=== PATIENT | female | born 1995 ===

== ENCOUNTER → 2018-05-05 | Outpatient (CLI) | payer SELFPAY ==
[~2018-05-05] VITALS: Ht 151.1 cm; Wt 71.9 kg
== END | disposition home or self-care (01) ==
LOC: PREOP 05:35
PROVIDERS: ATTEND Obstetrics & Gynecology
DX: Z01.818 Encounter for other preprocedural examination (principal)

== ENCOUNTER 2018-05-12 05:56 | Inpatient (IN) | payer OTHER ==
[~2018-05-12] VITALS: Ht 152.4 cm; Wt 73.0 kg
[~2018-05-12 05:56] MED LIST: CITRIC ACID/SOB CIT (BICITRA) 30 ML UDC ONE; FAMOTIDINE 20MG/2ML IV (PEPCID) ONE; LACTATED RINGERS 1,000 ML IV ONE; METOCLOPRAMIDE INJ 10 MG/2 ML (REGLAN) ONE; WATER (STERILE) FOR INJECTION 10 ML ONE; ceFAZolin INJECTION 1,000 MG ONE
--- NOTE | 2018-05-12 06:06 | NUR ---
ANA JOHNSON presented to unit via ambulatory from ED, accompanied by family, for c section. ANA JOHNSON weighed, gowned, voided, and to bed. EFHM and TOCO applied, VS taken. ANA JOHNSON oriented to bed controls, call light, TV, heat, and A/C controls.
[2018-05-12] MEDS ORDERED: LACTATED RINGERS 1,000 ML IV PRN (06:09)
[2018-05-12] MEDS ORDERED: FAMOTIDINE 20MG/2ML IV (PEPCID) IV ONE (06:15)
[2018-05-12] MEDS ORDERED: CITRIC ACID/SOB CIT (BICITRA) 30 ML UDC PO ONE (06:15)
[2018-05-12] MEDS ORDERED: ceFAZolin INJECTION 1,000 MG in WATER (STERILE) FOR INJECTION 10 ML IV ONE (06:15)
[2018-05-12] MEDS ORDERED: CATHETER FLUSH 10 ML SYR IV PRN (06:15)
[2018-05-12] MEDS ORDERED: METOCLOPRAMIDE INJ 10 MG/2 ML (REGLAN) IV ONE (06:15)
[2018-05-12 06:25] VITALS: BP 107/66
[2018-05-12 06:42] LABS: BASOPHILS % (AUTO) 0 % (0-10); EOSINOPHILS # (AUTO) 0.8 10^3/uL (0.0-0.3); EOSINOPHILS % (AUTO) 11 % (0-10); HEMATOCRIT 35 % (35-52); HEMOGLOBIN 11.9 G/DL (11.5-16.0); LYMPHOCYTES # (AUTO) 2.2 X 10^3 (1.0-4.0); LYMPHOCYTES % (AUTO) 30 % (12-44); MEAN CORPUSCULAR HEMOGLOBIN 32 PG (25-34); MEAN CORPUSCULAR HGB CONC 34 G/DL (32-36); MEAN CORPUSCULAR VOLUME 96 FL (80-99); MEAN PLATELET VOLUME 10.7 FL (7.4-10.4); MONOCYTES # (AUTO) 0.3 X 10^3 (0.0-1.0); MONOCYTES % (AUTO) 5 % (0-12); NEUTROPHILS # (AUTO) 3.9 X 10^3 (1.8-7.8); NEUTROPHILS % (AUTO) 54 % (42-75); PLATELET COUNT 248 10^3/uL (130-400); RED CELL DISTRIBUTION WIDTH 12.5 % (10.0-14.5); WHITE BLOOD COUNT 7.2 10^3/uL (4.3-11.0)
--- NOTE | 2018-05-12 06:49 | NUR ---
Anes student at bedside at this time.
[2018-05-12] MEDS ORDERED: BUPIVACAINE SPINAL 0.75% (SENSORCAINE) 2 ML AMP ONE (07:02)
[2018-05-12] MEDS ORDERED: ONDANSETRON 4 MG/2 ML (SDV) Z0FRAN ONE (07:02)
[2018-05-12] MEDS ORDERED: DEXAMETHASONE 10 MG/ML (DECADRON) 1 ML VIAL ONE (07:02)
[2018-05-12] MEDS ORDERED: fentaNYL INJECTION 100 MCG/2 ML AMP ONE (07:02)
[2018-05-12] MEDS ORDERED: OXYTOCIN/NORMAL SALINE 1,000 ML IV ONE (07:02)
[2018-05-12] MEDS ORDERED: LIDOCAINE PF 2% 5 ML (XYLOCAINE) VIAL ONE (07:17)
[2018-05-12] MEDS ORDERED: ROPIVACAINE 5MG/ML 30ML VIAL ONE (07:17)
--- NOTE | 2018-05-12 07:20 | History & Physical-OB ---
OB - Chief Complaint & HPI Date/Time Date of Admission: Date of Admission: May 12, 2018 at 05:56 Date seen by a Provider: May 12, 2018 Time Seen by a Provider: 07:10 Chief Complaint/History OB-Reason for Admission/Chief: Onset of Labor Hx : 3 Hx Para: 1 Expected Date of Delivery: May 26, 2018 Gestational Age in Weeks: 38 Gestational Age in Days: 0 Indication for : desires repeat Admission Nurse Assessment Rev: Yes History of Labs O pos Antibody neg RI RPR NR HBsAg NR HIV NR GC neg GBS unknown Allergies and Home Medications Allergies Coded Allergies: No Known Drug Allergies (Unverified , 05/12/18) Home Medications No Active Prescriptions or Reported Meds Patient Home Medication List Home Medication List Reviewed: Yes OB - History Hx of Present Ultrasounds: Normal mid trimester US Obstetrical Complications: Other (Cholestasis of ) Medical Complications: None Delivery History Adverse Rxn to Tranfusion: No (N/A) Patient Past Medical History n/a Social History/Family History HIV/AIDS: No Sexually Transmitted Disease: No Alcohol Use: Denies Use Recreational Drug Use: No Immunizations Date of Influenza Vaccine: Nov 29, 2017 OB - Admission Exam Physical Exam Vitals: Vital Signs 05/12/18 06:25 Temp 98.6 Pulse 80 Resp 16 B/P (MAP) 107/66 (80) Pulse Ox 99 O2 Delivery Room Air HEENT: NCAT Heart: Rhythm Normal Lungs: Clear Abdomen: Gravid Reflexes: Normal Heart Rate: 130's Accelerations: Accelerations Present Decelerations: No Decelerations Short Term Variability: Present Assisted Variability: Average (6-25) Contractions on Admission: 6-10 Minutes Apart Intensity: Mild Labs Laboratory Tests Test 05/12/18 06:23 Range/Units White Blood Count 7.2 4.3-11.0 10^3/uL Red Blood Count 3.67 L 4.35-5.85 10^6/uL Hemoglobin 11.9 11.5-16.0 G/DL Hematocrit 35 35-52 % Mean Corpuscular Volume 96 80-99 FL Mean Corpuscular Hemoglobin 32 25-34 PG Mean Corpuscular Hemoglobin Concent 34 32-36 G/DL Red Cell Distribution Width 12.5 10.0-14.5 % Platelet Count 248 130-400 10^3/uL Mean Platelet Volume 10.7 H 7.4-10.4 FL Neutrophils (%) (Auto) 54 42-75 % Lymphocytes (%) (Auto) 30 12-44 % Monocytes (%) (Auto) 5 0-12 % Eosinophils (%) (Auto) 11 H 0-10 % Basophils (%) (Auto) 0 0-10 % Neutrophils # (Auto) 3.9 1.8-7.8 X 10^3 Lymphocytes # (Auto) 2.2 1.0-4.0 X 10^3 Monocytes # (Auto) 0.3 0.0-1.0 X 10^3 Eosinophils # (Auto) 0.8 H 0.0-0.3 10^3/uL Basophils # (Auto) 0.0 0.0-0.1 10^3/uL OB - Assessment/Plan/Diagnosis Assessment Assessment: section Admission Dx Repeat 37 weeks Intrahepatic cholestasis of Previous Admission Status: Inpatient Order (span 2 midnights) Reason for Inpatient Admission: Repeat Plan Plan: Section CYN ORLANDO DO May 12, 2018 07:20
[2018-05-12] MEDS ORDERED: OXYTOCIN/NORMAL SALINE 500 ML IV SCH (07:25)
[2018-05-12] MEDS ORDERED: ACHD5005 PO (07:29)
[2018-05-12] MEDS ORDERED: IBUP-1773 PO (07:29)
[2018-05-12] MEDS ORDERED: DOCU100C37 PO (07:29)
[2018-05-12] MEDS ORDERED: ONDANSETRON 4 MG/2 ML (SDV) Z0FRAN IVP PRN (07:30)
[2018-05-12] MEDS ORDERED: HYDROmorphone 2 MG/ML VIAL (DILAUDID) IV PRN (07:30)
[2018-05-12] MEDS ORDERED: TETANUS,DIPTH,PERTUSS P/F (BOOSTRIX) 0.5 ML VIAL IM SCH (07:30)
[2018-05-12] MEDS ORDERED: MEASLES,MUMPS,RUBELLA 1 EA INJ SC SCH (07:30)
--- NOTE | 2018-05-12 07:31 | Discharge Inst-Women's Service ---
Discharge Inst-Women's Serv Depart Medication/Instructions New, Converted or Re-Newed RX: RX on Chart Final Diagnosis POD 2 RLTCS Consults/Follow Up Additional Follow Up: Yes Orders/Referrals Dr. Garcia in 7-10, Dr. Casey in 6 weeks Activity Activity: Activity as Tolerated Driving Instructions: No Driving for 1 Week NO SMOKING: NO SMOKING Nothing Inside Vagina: No Douching, No [place], No Tampons Diet Discharge Diet: No Restrictions Symptoms to Report to : Bleeding Excessive, Pain Increased, Fever Over 101 Degrees F, Vaginal Bleeding Increase, Questions/Concerns For Any Problems or Questions: Contact Your Physician Skin/Wound Care Infection Signs and Symptoms: Increased Redness, Foul Odor of Wound, Increased Drainage, Skin Itchy or Has a Rash, Increased Swelling, Temperature Above 101 F Operative Area Clean and Dry: Keep Incision Clean/Dry Stitches/Danielito/Dermabond: Dermabond, Care of Stitches Bathing Instructions: CYN Bullock DO May 12, 2018 07:31
[2018-05-12] MEDS ORDERED: NALOXONE 0.4 MG/ML 1 ML (NARCAN) VIAL IV PRN (08:45)
[2018-05-12] MEDS ORDERED: diphenhydrAMINE 50 MG/ML INJ (BENADRYL) IV PRN (08:45)
[2018-05-12] MEDS ORDERED: ONDANSETRON 4 MG/2 ML (SDV) Z0FRAN IV PRN (08:45)
--- NOTE | 2018-05-12 09:35 | NUR ---
transferred to room 308 from recovery at 0925. IV switch over to pump, pitocin infusing at 125ml/hr as ordered. fresh ice water placed at bedside. denies pain. SCD's to lower calfs. no s/s of distress noted.
[2018-05-12 10:20] VITALS: BP 106/67
--- NOTE | 2018-05-12 10:20 | NUR ---
vitals taken. family at bedside. reports mild pain see vitals intervention. toradol given as ordered see eMAR. reviewed room service, [place] menu given. light to moderate flow. ffu/0 denies further need at this time.
[2018-05-12] MEDS: KETOROLAC 30 MG/ML VIAL IVP SCH (10:28)
--- NOTE | 2018-05-12 11:10 | NUR ---
Resting with eyes closed.
[2018-05-12] MEDS: HYDROcodone/APAP 5 MG/325 MG (LORTAB) TAB PO PRN ×2 (11:49→21:09)
--- NOTE | 2018-05-12 13:35 | OPERATIVE REPORT ---
DATE OF SERVICE: PREOPERATIVE DIAGNOSES: 1. A 22-year-old G3, P2 at 38 weeks and 1 day gestation. 2. Previous section x 2. 3. Cholestasis of . POSTOPERATIVE DIAGNOSES: 1. A 22-year-old G3, P2 at 38 weeks and 1 day gestation. 2. Previous section x 2. 3. Cholestasis of . PROCEDURE: Repeat low transverse section. SURGEON: Gregorio Orlando DO. ANESTHESIA: Spinal. BDR: Dr. Lex Casey. ESTIMATED BLOOD LOSS: 400 mL. URINE OUTPUT: 200 mL clear at the end of the procedure. FLUIDS: 1000 mL lactated Ringer solution. FINDINGS: A live female infant weighing 6 pounds and 11 ounces, Apgars of 8 and 9. Grossly normal appearing uterus, bilateral fallopian tubes and ovaries. INDICATIONS FOR PROCEDURE: This 22-year-old female is a consultation to me from Dr. Casey at the [facility] for a repeat . She had a two prior low transverse cesareans that had been performed in [facility]. She was diagnosed with cholestasis of around 32 weeks and started on cholestyramine with good relief in symptoms. I recommended continuous surveillance weekly for the remainder of the . She progressed all the way to 38 weeks. Recommendation was to deliver prior to 39 weeks due to the cholestasis of and increased risk of IUFD. Risks of the procedure were discussed with the patient in detail preoperatively including risk of bleeding, infection, damage to surrounding structures including, but not limited to bowel, bladder, ureter, kidneys, possible postoperative complications, possible recovery timeframes, risk to baby, risk to mother, risk of anesthesia and even . After everything was discussed with the patient in detail, consent was obtained in the preoperative area and the patient was taken to the operating room. OPERATIVE REPORT IN DETAIL: Once in the operating room and spinal analgesia was found to be adequate, she was placed in a supine position with the leftward tilt and prepped and draped in a normal sterile fashion. A timeout was performed and anesthesia was tested and found to be adequate. I then made a low transverse incision through the previously existing scar using a knife and carried down to the underlying fascia using a Bovie cautery. Fascia was extended laterally using Bovie cautery. The fascial incision extended laterally using Bovie cautery. Superior aspect of the fascial incision was then grasped with April clamps, tented up and dissected off the underlying rectus muscle. The inferior aspect of the fascial incision was then grasped with April clamps, tented up and dissected off the underlying rectus muscles. The rectus muscle was dissected down the midline using Stewart scissors, which exposed the peritoneum, which I entered bluntly and extended using blunt traction. An Peewee ring retractor was placed in the peritoneal incision, which offered excellent lateral side wall retraction. I then identified the lower uterine segment, which was found to be very thinned out. A low transverse incision was made with a knife through the vesicouterine peritoneum, which was bluntly dissected off the lower uterine segment. Myotomy was continued with blunt traction and membranes were encountered almost immediately. The uterine incision was extended laterally and superiorly using bandage scissors. Amniotomy was performed during the process of doing this and meconium stained fluid was noted. The infant was found in a vertex presentation. With gentle fundal pressure, the infant's head was elevated up to the incision where the nares and oropharynx were bulb suctioned. Nuchal cord was reduced x 1. Anterior and posterior shoulders were delivered. was then brought to the operative field where the cord was doubly clamped and cut and infant was taken off of the field by Dr. Casey for further attendance. Cord blood was collected. Three-vessel cord with intact placenta was delivered spontaneously thereafter. IV Pitocin was initiated to facilitate uterine contraction. Uterine fundus became firmer with bimanual massage. The uterus was then exteriorized and cleared of endometrial clots and debris. I then proceeded with closing the uterine incision using 0 Vicryl suture in a running locked fashion. Second layer of imbricating 0 Monocryl was placed. Excellent hemostasis was noted after doing this. I then placed the uterus back into the pelvis and copiously irrigated the pelvis using normal saline. Once again, there was no active bleeding noted from any of my dissection planes. I placed Interceed antiadhesive over my low transverse incision proceeded with closing the peritoneum using 3-0 Vicryl suture in a running fashion. The rectus muscle was reapproximated using 3-0 Vicryl suture in an interrupted fashion. The fascia was reapproximated using 0 Vicryl suture in a running fashion. The subcutaneous tissue was reapproximated using a 3-0 plain in an interrupted subcutaneous stitch and the skin was reapproximated using 4-0 Monocryl running subcuticular. Dermabond was applied to the incision and a sterile dressing with the adhesive white tape. The patient tolerated the procedure well and was sent to the recovery area in stable condition. Two grams of Ancef were given preoperatively for infection prophylaxis. Job ID: [id number] DocumentID: [id number] Dictated Date: 05/12/2018 10:28:38 Pilot Teacher Date: 05/12/2018 13:34:30 Dictated By: GREGORIO ORLANDO DO
[2018-05-12] MEDS ORDERED: CATHETER FLUSH 10 ML SYR IV SCH (14:00)
[2018-05-12 15:25] VITALS: BP 98/57
--- NOTE | 2018-05-12 17:10 | NUR ---
Up to BR and voided 900ml. Ambulated slowly, pt states "mild" pain. Albanian speaking with minimal Yi. Grandfather speaks Yi well.
[2018-05-12 21:09] VITALS: BP 103/62
[2018-05-12] MEDS: DOCUSATE SODIUM 100 MG (COLACE) CAP PO SCH (21:09)
--- NOTE | 2018-05-12 21:09 | NUR ---
Patient assisted up to bathroom. positive void achieved of 900mL, scant bleeding to vpad, fresh pad placed, patient back to bed and scds replaced on legs bilaterally.
--- NOTE | 2018-05-12 21:50 | NUR ---
Patient to con via wheelchair to visit infant.
--- NOTE | 2018-05-12 22:15 | NUR ---
Patient taken back to room via wheelchair at her request.
[2018-05-13] MEDS: KETOROLAC 30 MG/ML VIAL IVP SCH ×2 (00:40→06:45)
[2018-05-13 01:53] VITALS: BP 92/57
--- NOTE | 2018-05-13 03:50 | NUR ---
Patient c/o upper back and shoulder pain bilaterally, reviewed with patient using translation why air may be trapped up in shoulder area. Patient verbalized understanding. Will provide prn pain medication. Patient denies needing to use restroom at this time when assistance offered. Will continue to monitor.
[2018-05-13] MEDS: HYDROcodone/APAP 5 MG/325 MG (LORTAB) TAB PO PRN ×4 (03:54→21:16)
--- NOTE | 2018-05-13 05:58 | Postpartum Progress Note ---
Note Note Day # 1 Subjective: Patient is without complaints. Ambulating, voiding. Tolerating a regular diet without nausea or vomiting. Normal lochia. Pain is well controlled with oral pain medications. Objective: Physical Exam: General - Alert and oriented, no apparent distress Abdomen - Soft, appropriately tender to palpation, non-distended, fundus firm at umbilicus Extremities - no edema, negative Pebbles's bilaterally Incision- c/d/i Assessment: POD 1 RLTCS Plan: Routine care. Encourage breast feeding. Encourage ambulation. Ferrous sulfate supplementation. Plan for discharge tomorrow Vitals - Labs Vital Signs - I&O Vital Signs Date Time Temp Pulse Resp B/P (MAP) Pulse Ox O2 Delivery O2 Flow Rate FiO2 05/13/18 01:53 97.6 62 18 92/57 (69) 98 Room Air 05/12/18 21:09 98.2 64 18 103/62 (76) 98 Room Air 05/12/18 15:25 97.8 59 16 98/57 (71) Room Air 05/12/18 10:20 98.2 62 20 106/67 (80) 05/12/18 06:25 98.6 80 16 107/66 (80) 99 Room Air I & O 05/13/18 07:00 Intake Total 2810 ml Output Total 2100 ml Balance 710 ml Labs Laboratory Tests 05/12/18 06:23: White Blood Count 7.2, Red Blood Count 3.67L, Hemoglobin 11.9, Hematocrit 35, Mean Corpuscular Volume 96, Mean Corpuscular Hemoglobin 32, Mean Corpuscular Hemoglobin Concent 34, Red Cell Distribution Width 12.5, Platelet Count 248, Mean Platelet Volume 10.7H, Neutrophils (%) (Auto) 54, Lymphocytes (%) (Auto) 30 , Monocytes (%) (Auto) 5, Eosinophils (%) (Auto) 11H, Basophils (%) (Auto) 0, Neutrophils # (Auto) 3.9, Lymphocytes # (Auto) 2.2, Monocytes # (Auto) 0.3, Eosinophils # (Auto) 0.8H, Basophils # (Auto) 0.0 CYN ORLANDO DO May 13, 2018 05:58
[2018-05-13] MEDS ORDERED: KETOROLAC 30 MG/ML VIAL ONE (06:36)
[2018-05-13 06:45] LABS: BASOPHILS % (AUTO) 0 % (0-10); EOSINOPHILS # (AUTO) 0.3 10^3/uL (0.0-0.3); EOSINOPHILS % (AUTO) 3 % (0-10); HEMATOCRIT 31 % (35-52); HEMOGLOBIN 10.3 G/DL (11.5-16.0); LYMPHOCYTES # (AUTO) 2.8 X 10^3 (1.0-4.0); LYMPHOCYTES % (AUTO) 30 % (12-44); MEAN CORPUSCULAR HEMOGLOBIN 33 PG (25-34); MEAN CORPUSCULAR HGB CONC 33 G/DL (32-36); MEAN CORPUSCULAR VOLUME 98 FL (80-99); MEAN PLATELET VOLUME 10.6 FL (7.4-10.4); MONOCYTES # (AUTO) 0.6 X 10^3 (0.0-1.0); MONOCYTES % (AUTO) 6 % (0-12); NEUTROPHILS # (AUTO) 5.6 X 10^3 (1.8-7.8); NEUTROPHILS % (AUTO) 61 % (42-75); PLATELET COUNT 239 10^3/uL (130-400); RED CELL DISTRIBUTION WIDTH 12.7 % (10.0-14.5); WHITE BLOOD COUNT 9.3 10^3/uL (4.3-11.0)
[2018-05-13 06:50] VITALS: BP 95/56
--- NOTE | 2018-05-13 07:05 | Anesthesia-Regional Post-Op ---
Regional Patient Condition Mental Status: Alert, Oriented x3 Circulation: Same as Pre-Op Headache: Absent Sensation: Full Recovery Motor Block: Absent Post Op Complications Complications None Follow Up Care/Instructions Patient Instructions None needed. Anesthesia/Patient Condition Patient is doing well, no complaints, stable vital signs, no apparent adverse anesthesia problems. No complications reported per nursing. ALVIN RASCON CRNA May 13, 2018 07:05
[2018-05-13 07:50] VITALS: BP 94/60
[2018-05-13] MEDS: DOCUSATE SODIUM 100 MG (COLACE) CAP PO SCH ×2 (10:18→21:17)
[2018-05-13] MEDS: IBUPROFEN 600 MG (MOTRIN) TAB PO SCH ×3 (12:17→18:41)
[2018-05-13 14:51] VITALS: BP 100/58
--- NOTE | 2018-05-13 14:55 | NUR ---
PT IN BED, VS OBTAINED. DENIES ANY NEEDS AT THIS TIME.
[2018-05-13 21:10] VITALS: BP 96/60
--- NOTE | 2018-05-13 21:10 | NUR ---
MANY VISITORS STILL REMAIN PRESENT IN ROOM. VS AND ASSESSMENT OBTAINED AND STABLE. COLACE AND LORTAB 1 TAB ADMINISTERED.
--- NOTE | 2018-05-14 00:05 | NUR ---
PT RESTING VERY SOUNDLY IN BED. NO S/S OF DISTRESS OR DISCOMFORT NOTED.
[2018-05-14] MEDS: IBUPROFEN 600 MG (MOTRIN) TAB PO SCH ×2 (03:39→11:41)
[2018-05-14 03:40] VITALS: BP 91/60
[2018-05-14] MEDS: HYDROcodone/APAP 5 MG/325 MG (LORTAB) TAB PO PRN (03:40)
--- NOTE | 2018-05-14 03:40 | NUR ---
MOTRIN AND PAIN MEDS ADMINISTERED. VSS. PT DENIES ANY FURTHER NEEDS.
--- NOTE | 2018-05-14 07:20 | NUR ---
REPORT TO ONCOMING SHIFT.
--- NOTE | 2018-05-14 08:30 | NUR ---
DR. ORLANDO HERE TO SEE PT. PLAN FOR DISCHARGE TODAY.
--- NOTE | 2018-05-14 08:35 | Postpartum Progress Note ---
Note Note Day # 2 Subjective: Patient is without complaints. Ambulating, voiding. Tolerating a regular diet without nausea or vomiting. Normal lochia. Pain is well controlled with oral pain medications. Objective: Physical Exam: General - Alert and oriented, no apparent distress Abdomen - Soft, appropriately tender to palpation, non-distended, fundus firm at umbilicus Extremities - no edema, negative Pebbles's bilaterally Incision- c/d/i Assessment: POD 2 RLTCS Acute blood loss anemia Plan: Routine care. Encourage breast feeding. Encourage ambulation. Ferrous sulfate supplementation. Plan for discharge today Vitals - Labs Vital Signs - I&O Vital Signs Date Time Temp Pulse Resp B/P (MAP) Pulse Ox O2 Delivery O2 Flow Rate FiO2 05/14/18 03:40 98.1 69 18 91/60 (70) 98 Room Air 05/13/18 21:16 96.8 05/13/18 21:10 96.8 68 18 96/60 (72) 100 Room Air 05/13/18 14:51 98.2 74 18 100/58 (72) 98 Room Air I & O 05/14/18 07:00 Intake Total 1000 ml Output Total 1300 ml Balance -300 ml Labs Microbiology 05/12/18 MRSA Screen - Final, Complete MRSA not isolated CYN ORLANDO DO May 14, 2018 08:35
[2018-05-14 09:00] VITALS: BP 100/51
--- NOTE | 2018-05-14 09:00 | NUR ---
A.M. ASSESSMENT COMPLETED. VSS.
--- NOTE | 2018-05-14 10:00 | NUR ---
PT HAS HAD TDAP.
--- NOTE | 2018-05-14 10:30 | NUR ---
PT EATING AT THIS TIME. ORDERED MEAL FOR HER. SPEAKS NO MOROCCAN.
[2018-05-14] MEDS: DOCUSATE SODIUM 100 MG (COLACE) CAP PO SCH (11:41)
[2018-05-14 13:00] VITALS: BP 106/61
[2018-05-14] MEDS ORDERED: FLU QUADRIvalent (5+ YOA) 2018-2019 (AFLURIA) 0.5 ML IM ONE ×2 (13:16→14:45)
--- NOTE | 2018-05-14 13:27 | NUR ---
FLU VACCINE GIVEN IM IN LEFT DELTOID. SITE CLEAR.
--- NOTE | 2018-05-14 14:00 | NUR ---
DISCHARGE INSTRUCTIONS REVIEWED WITH COPY TO PT. LANGUAGE LINE USED AUTO SERVICER. FAMILY MEMBER PRESENT WHO SPEAKS SOME NEPALI WELL. STATES UNDERSTANDING OF ALL INSTRUCTIONS AND NEED TO F/U SCHEDULED AND NEEDED.
--- NOTE | 2018-05-14 14:10 | NUR ---
DISMISSED VIA W/C TO FAMILY CAR IN STABLE CONDITION ACC BY [facility] FAMILY MEMBERS AND WHITNEY ABREU.
== END 2018-05-14 14:10 | disposition home or self-care (01) | DRG 786 ==
LOC: LDRP 05:56
PROVIDERS: ADMIT Obstetrics & Gynecology; ATTEND Obstetrics & Gynecology
PROC: 10D00Z1 Extraction of Products of Conception, Low, Open Approach (ICD-10-PCS; principal; 2018-05-12 07:25)
DX: O34.211 Maternal care for low transverse scar from previous cesarean delivery (principal); O26.62 Liver and biliary tract disorders in childbirth; K83.1 Obstruction of bile duct; O69.81X0 Labor and delivery complicated by cord around neck, without compression, not applicable or unspecified; O90.81 Anemia of the puerperium; D62 Acute posthemorrhagic anemia; Z37.0 Single live birth; Z3A.38 38 weeks gestation of pregnancy
CPT/HCPCS: 36415; 85025; 86850; 86900; 86901; 87081; 90686; 94664